=== PATIENT | male | born 1965 | race Asian ===

== ENCOUNTER 2024-05-26 20:16 | Emergency (ER) | payer BC, OTHER ==
[~2024-05-26] VITALS: Ht 167.6 cm; Wt 171.8 kg
--- NOTE | 2024-05-26 21:16 | ED.PDOC ---
History of Present Illness HPI Comments 58 y/o M, with a Hx of BPH, gout, and alcohol use and a FMHx of HTN, presents with c/o HTN, right-sided chest pain, dizziness, blurry vision, and neck stiffness, today. Patient endorses on additional sudden onset of chest pain, this evening, an hour prior to arrival following onset of other aforementioned symptoms, yesterday. Patient comments on checking his blood pressure and noticing it being 165/85 after feeling neck stiffness, dizziness, and blurry vision, yesterday. He states on pain being non-radiating and describes it as a type of discomfort. He endorses on being physically active. Upon arrival to ED, patient had a blood pressure of 1180/106. He denies having any shortness of breath, palpitations, nausea, vomiting, fever, chills, or other associated symptoms or modifiers at this time. Time Seen by MD: 21:00 Reviewed Notes: Nurses Notes, Medications, Allergies Home Meds Active Scripts Lisinopril (Lisinopril) 20 Mg Tab, 1 TAB PO DAILY, #30 TAB 5 Refills Prov:MELL PIERRE MD 05/26/24 Information Source: Patient Mode of Arrival: Ambulatory Severity: Moderate Timing: Days Duration: Since onset Prehospital treatment: None Past Medical History PAST MEDICAL HISTORY: Gout Past Medical History (Other): BPH Surgical History: Denies all surgeries Family History Family History: Unknown Social History Smoker: Non-Smoker Alcohol: Occasionally Drugs: Denies Drug Use EENTM: reports: blurred vision Cardiovascular: reports: chest pain, dizzy spells Hematologic/Lymphatic: reports: others (HTN) Physical Exam General Appearance: No Apparent Distress HEENT: Normal ENT Inspection, Pharynx Normal, TMs Normal Neck: Full Range of Motion, Non-Tender, Normal, Normal Inspection Respiratory: Chest Non-Tender, Lungs Clear, No Accessory Muscle Use, No Respiratory Distress, Normal Breath Sounds Cardiovascular: No Edema, No JVD, No Murmur, No Gallop, Normal Peripheral Pulses, Regular Rate/Rhythm Breast Exam: Deferred Gastrointestinal: No Organomegaly, Non Tender, No Pulsatile Mass, Normal Bowel Sounds, Soft Genitalia: Deferred Pelvic: Deferred Rectal: Deferred Extremities: No calf tenderness, Normal capillary refill, Normal inspection, Normal range of motion, Non-tender, No pedal edema Musculoskeletal : Apperance: Normal Neurologic: Alert, meter inspector II-XII nml as Tested, No Motor Deficits, Normal Affect, Normal Mood, No Sensory Deficits Cerebellar Function: Normal Reflexes: Normal Skin: Dry, Normal Color, Warm Lymphatic: No Adenopathy Was a procedure done? Was a procedure done?: No EKG EKG : Pulse Rate (adult): 69 [place]: Normal Cardiac Rhythm: NSR Block: None Hypertrophy: None ST: Normal Differential Dx Considerations may include: OH, ACS, PE, musculoskeletal pain, HTN emergency, HTN non-essential X-Ray, Labs, Meds, VS Vital Signs Date Time Temp Pulse Resp B/P (MAP) Pulse Ox O2 Delivery O2 Flow Rate FiO2 05/26/24 21:22 98.2 78 18 180/106 (130) 98 05/26/24 21:18 69 05/26/24 21:15 69 Lab Test 05/26/24 22:08 05/26/24 21:19 Range/Units Troponin I High Sensitivity Pending 6 </=54 ng/L White Blood Count 5.7 4.4-10.8 10^3/uL Red Blood Count 4.76 4.5-5.90 10^6/uL Hemoglobin 15.3 13.5-17.5 g/dL Hematocrit 44.0 41.0-53.0 % Mean Corpuscular Volume 92.4 80.0-100.0 fL Mean Corpuscular Hemoglobin 32.0 28.0-32.0 pg Mean Corpuscular Hemoglobin Concent 34.7 32.0-36.0 g/dL Red Cell Distribution Width 12.9 11.8-14.3 % Platelet Count 208 140-450 10^3/uL Mean Platelet Volume 7.2 6.9-10.8 fL Neutrophils (%) (Auto) 55.8 37.0-80.0 % Lymphocytes (%) (Auto) 30.1 10.0-50.0 % Monocytes (%) (Auto) 8.4 0.0-12.0 % Eosinophils (%) (Auto) 4.1 0.0-7.0 % Basophils (%) (Auto) 1.6 0.0-2.0 % Neutrophils # (Auto) 3.2 1.6-8.6 10 ^3/uL Lymphocytes # (Auto) 1.7 0.4-5.4 10 ^3/uL Monocytes # (Auto) 0.5 0-1.3 10 ^3/uL Eosinophils # (Auto) 0.2 0-0.8 10 ^3/uL Basophils # (Auto) 0.1 0-0.2 10 ^3/uL Nucleated Red Blood Cells 0.0 % Sodium Level 138 136-145 mmol/L Potassium Level 3.7 3.5-5.1 mmol/L Chloride Level 103 98-107 mmol/L Carbon Dioxide Level 26 20-31 mmol/L Anion Gap 9 5-15 Blood Urea Nitrogen 11 9-23 mg/dL Creatinine 1.02 0.700-1.30 mg/dL Glomerular Filtration Rate Calc 85 >90 mL/min BUN/Creatinine Ratio 10.8 10.0-20.0 Serum Glucose 113 H 74-106 mg/dL Calcium Level 9.8 8.7-10.4 mg/dL The CBC and chemistry panel are within normal limits The troponin level is negative The patient was given clonidine for the elevated blood pressure The patient was being discharged on lisinopril The patient will follow up with the primary care doctor The patient will return to the emergency department's condition worsens The chest x-ray is negative Images Reviewed?: Images reviewed and evaluated by me Time of 1ST Reevaluation: 21:30 Reevaluation 1ST: Unchanged Patient Education/Counseling: Diagnosis, Treatment, Prognosis, Need For Follow Up Family Education/Counseling: No Family Present Departure 1 Departure Time of Disposition: 22:21 Impression: Primary Impression: Hypertensive urgency Disposition: 01 HOME / SELF CARE / HOMELESS Condition: Fair e-Prescriptions Lisinopril (Lisinopril) 20 Mg Tab 1 TAB PO DAILY, #30 TAB 5 Refills Prov: MELL PIERRE MD 05/26/24 Discharged With: Self Critical Care Note Critical Care Time?: No Stability Stability form required: No Heart Score Heart Score: Heart Score Response (Comments) Value History N/A 0 EKG Normal 0 Age 45-64 1 Risk Factors 1 or 2 risk factors 1 Troponin Normal limit 0 Total 2 I personally scribed for MELL PIERRE MD ([email or web address]) on 05/26/24 at 21:15. Electronically submitted by Jude Blanton ([email or web address]). I personally scribed for MELL PIERRE MD ([email or web address]) on 05/26/24 at 21:18. Electronically submitted by Jude Blanton ([email or web address]). MELL PIERRE MD May 26, 2024 21:15
[2024-05-26 21:37] LABS: Basophils # (auto) 0.1 10 ^3/uL (0-0.2); Basophils % (auto) 1.6 % (0.0-2.0); Eosinophils # (auto) 0.2 10 ^3/uL (0-0.8); Eosinophils % (auto) 4.1 % (0.0-7.0); Hemoglobin 15.3 g/dL (13.5-17.5); Lymphocytes # (auto) 1.7 10 ^3/uL (0.4-5.4); Lymphocytes % (auto) 30.1 % (10.0-50.0); Mean Corpuscular Hgb Conc. 34.7 g/dL (32.0-36.0); Mean Corpuscular Volume 92.4 fL (80.0-100.0); Monocytes # (auto) 0.5 10 ^3/uL (0-1.3); Monocytes % (auto) 8.4 % (0.0-12.0); Neutrophils # (auto) 3.2 10 ^3/uL (1.6-8.6); Neutrophils % (auto) 55.8 % (37.0-80.0); Platelet Count (auto) 208 10^3/uL (140-450); Red Blood Cells 4.76 10^6/uL (4.5-5.90); Red Cell Distribution Width 12.9 % (11.8-14.3); White Blood Cell 5.7 10^3/uL (4.4-10.8)
[2024-05-26 21:45] LABS: Chloride 103 mmol/L (98-107); Potassium 3.7 mmol/L (3.5-5.1); Sodium 138 mmol/L (136-145)
[2024-05-26 21:46] LABS: Anion Gap 9 (5-15); Carbon Dioxide 26 mmol/L (20-31)
[2024-05-26 21:47] LABS: Calcium 9.8 mg/dL (8.7-10.4)
--- NOTE | 2024-05-26 21:49 | DVH ---
XY CHEST TWO VIEWS ROUTINE CLINICAL HISTORY: cp COMPARISON: None TECHNIQUE: Frontal and lateral view of the chest was obtained FINDINGS: Lines and Tubes: None Lungs: No focal consolidation. Pleura: No effusion. No pneumothorax. Cardiomediastinal contours: Unremarkable Bones: No acute osseous abnormality. IMPRESSION: 1. No acute cardiopulmonary disease.
[2024-05-26 21:51] LABS: BUN/Creatinine Ratio 10.8 (10.0-20.0); Blood Urea Nitrogen 11 mg/dL (9-23)
[2024-05-26 22:01] LABS: Glucose 113 mg/dL (74-106)
[2024-05-26] MEDS ORDERED: LISI20TA56 PO (22:20)
[2024-05-27] MEDS: ASPirin 81 mg TAB PO ONE (01:10)
[2024-05-27] MEDS: cloNIDine HCL 0.1 MG TAB PO ONE (01:10)
[2024-05-27 01:11] VITALS: PULSE 70; RESP 19; O2SAT 98
[2024-05-27 02:09] VITALS: BP 139/93; PULSE 66; RESP 17; TEMP 98.2; O2SAT 95
--- NOTE | 2024-05-27 06:45 | ECG ---
[facility] Test Date: 2024-05-26 Test Time: 21:15:38 Pat Name: MAX ACEVEDO Department: ER Room: Gender: M Presser Automatic: AM : 1965 Requested By: MELL PIERRE Order Number: [id number] Reading MD: Gregory Santos Measurements Intervals [place] Rate: 69 P: 88 SD: 164 QRS: 88 QRSD: 86 T: 63 QT: 377 QTc: 404 Interpretive Statements Sinus rhythm Baseline wander in lead(s) V6 Electronically Signed On 05-27-2024 13:28:08 PST by Gregory Santos Please click the below link to view image of tracing.
== END 2024-05-27 02:12 | disposition home or self-care (01) ==
LOC: ER 20:16
DX: I16.0 Hypertensive urgency (principal)
CPT/HCPCS: 36415; 71046; 80048; 84484; 85025; 93005